=== PATIENT | female | born 2000 | race Two or more races ===

== ENCOUNTER 2023-04-11 15:34 | Emergency (ER) | payer OTHER ==
[2023-04-11 15:47] VITALS: BP 100/68; PULSE 79; RESP 19; TEMP 98.4; BMI 16.9
[2023-04-11] MEDS ORDERED: ACETAMINOPHEN 1000 MG/100 ML BAG IVPB ONE (16:38)
[2023-04-11] MEDS ORDERED: FAMOTIDINE 20 MG/50 ML IVPB 20 MG/50 ML MG IVPB ONE ×2 (16:38→17:22)
[2023-04-11] MEDS ORDERED: ONDANSETRON 4 MG/2 ML VIAL IVPUSH ONE (16:38)
[2023-04-11] MEDS ORDERED: LACTATED RINGERS SOLUTION 1000 ML INFUS.BAG IV ONE (16:38)
[2023-04-11 16:58] LABS: BASO % 0.2 % (0-2.0); EOS % 0.2 % (0-4.5); HEMOGLOBIN 14.2 GM/dL (10.7-15.3); LYMPH % 1.9 % (8-40); MCH 27.2 pg (25.7-33.7); MEAN CELL VOLUME 82.5 fl (80-96); MEAN PLT VOLUME 8.4 fl (7.5-11.1); MONO % 4.4 % (3.8-10.2); NEUT % 93.3 % (42.8-82.8); PLATELET COUNT 270 10^3/uL (134-434); RBC 5.21 M/mm3 (3.60-5.2); RDW 17.4 % (11.6-15.6); WHITE BLOOD COUNT 11.2 K/mm3 (4.0-10.0)
[2023-04-11 17:13] LABS: POTASSIUM 4.1 mmol/L (3.5-5.1)
[2023-04-11 17:15] LABS: CALCIUM 9.3 mg/dL (8.5-10.1)
[2023-04-11 17:16] LABS: BLOOD UREA NITROGEN 12.7 mg/dL (7-18)
[2023-04-11 17:19] LABS: CREATININE 0.7 mg/dL (0.55-1.3); INR 1.2 (0.83-1.09); PROTHROMBIN TIME (PATIENT) 13.9 SEC (9.7-13.0)
[2023-04-11 17:21] LABS: ACTIVATED PTT 28.3 SECONDS (25.2-36.5); BILIRUBIN,TOTAL 1.4 mg/dL (0.2-1); TOT PROT 7.9 g/dl (6.4-8.2)
[2023-04-11] MEDS ORDERED: ACETAMINOPHEN INJECTION 100 ML IVPB ONE (17:21)
[2023-04-11] MEDS ORDERED: ONDANSETRON 4 MG/2 ML VIAL ONE (17:22)
[2023-04-11] MEDS ORDERED: RAPID SEQUENCE INTUBATION KIT NR ONE (19:08)
== END 2023-04-11 19:03 | disposition home or self-care (01) ==
LOC: JER 15:34
PROC: 3E033GC Introduction of Other Therapeutic Substance into Peripheral Vein, Percutaneous Approach (ICD-10-PCS; principal; 2023-04-11)
PROC: 3E033NZ Introduction of Analgesics, Hypnotics, Sedatives into Peripheral Vein, Percutaneous Approach (ICD-10-PCS; 2023-04-11)
PROC: 3E033GC Introduction of Other Therapeutic Substance into Peripheral Vein, Percutaneous Approach (ICD-10-PCS; 2023-04-11)
DX: K52.9 Noninfective gastroenteritis and colitis, unspecified (principal); R11.2 Nausea with vomiting, unspecified; R53.81 Other malaise; R53.1 Weakness; R63.8 Other symptoms and signs concerning food and fluid intake; R10.13 Epigastric pain; R10.11 Right upper quadrant pain; Z20.822 Contact with and (suspected) exposure to COVID-19
CPT/HCPCS: 0241U-QW; 36415; 76705-TC; 80053; 83735; 84703; 85025; 85610; 85730; 93005; 93010; 99285-25